=== PATIENT | male | born 1975 | race Caucasian/White ===

== ENCOUNTER 2017-12-31 00:13 | Emergency (ER) | payer SELFPAY ==
[~2017-12-31] VITALS: Ht 172.7 cm; Wt 99.5 kg
[2017-12-31 00:55] LABS: HEMATOCRIT 44.2 % (38.0-50.0); HEMOGLOBIN 15.6 G/DL (12.5-16.6); MCH 30.8 PG (29.0-34.0); MCHC 35.3 G/DL (30.0-36.0); MCV 87.4 FL (86-99); PLATELET COUNT 241 K/uL (156-360); RBC DIS.WIDTH-CV 12.5 % (11.8-14.6); RBC DIS.WIDTH-SD 39.8 % (39-53); RED BLOOD COUNT 5.06 M/uL (4.00-5.50); WHITE BLOOD COUNT 11.9 K/uL (4.1-10.2)
[2017-12-31 01:08] LABS: ALBUMIN 4.5 g/dL (3.2-4.8); CHLORIDE 104 mEq/L (99-109); POTASSIUM 3.7 mEq/L (3.7-5.4); SODIUM 138 mEq/L (136-147)
[2017-12-31 01:10] LABS: GLUCOSE 107 mg/dL (70-99); TOTAL PROTEIN 7.4 g/dL (6.4-8.3)
[2017-12-31 01:12] LABS: TOTAL BILIRUBIN 0.3 mg/dL (0.0-1.0)
[2017-12-31 01:14] LABS: ALKALINE PHOSPHATASE 118 IU/L (3-129); CREATININE 1.2 mg/dL (0.6-1.3); GFR ESTIMATE (CALCULATED) > 59 mL/min/ (58.99-99999)
[2017-12-31 01:15] LABS: UREA NITROGEN (BUN) 17 mg/dL (9-23)
[2017-12-31 01:16] LABS: AST (GOT) 20 IU/L (2-34)
[2017-12-31 01:17] LABS: ALT (GPT) 30 IU/L (3-49); TROP-I INTERPRETATION NEGATIVE; TROPONIN-I < 0.01 ng/mL (0.0-0.30)
[2017-12-31 01:42] VITALS: BP 132/84
== END 2017-12-31 02:20 | disposition home or self-care (01) ==
LOC: EME 00:13
PROVIDERS: Emergency Medicine
DX: R00.2 Palpitations (principal); F12.90 Cannabis use, unspecified, uncomplicated; I45.6 Pre-excitation syndrome; F17.200 Nicotine dependence, unspecified, uncomplicated
CPT/HCPCS: 71045; 80053; 84484; 85027; 93005; 99281; 99285